=== PATIENT | male | born 1990 | race Two or more races ===

== ENCOUNTER 2020-10-14 21:18 | Emergency (ER) | payer MEDICAID ==
[~2020-10-14] VITALS: Ht 180.3 cm; Wt 72.7 kg
[2020-10-14] MEDS ORDERED: ONDANSETRON HCL 4 MG/2 ML VIAL IVP ONE (21:45)
[2020-10-14] MEDS ORDERED: NALOXONE HCL 1 MG/ML 2 ML SYG IVP ONE (21:45)
[2020-10-14 22:17] LABS: BASOPHILS % (AUTO) 0.6 % (0.0-2.0); EOSINOPHILS % (AUTO) 1.7 % (1.0-6.0); HEMATOCRIT 43.2 % (41-53); HEMOGLOBIN 14.2 g/dL (13.5-17.5); LYMPHOCYTES # (AUTO) 3.1 K/uL (1.0-4.8); LYMPHOCYTES % (AUTO) 30.8 % (22.0-44.0); MEAN CORPUSCULAR HGB CONC 32.8 G/dL (31.0-37.0); MEAN CORPUSCULAR VOLUME 89 fL (80-100); MONOCYTES # (AUTO) 0.9 K/uL (0.1-1.0); MONOCYTES % (AUTO) 8.9 % (2.0-9.0); NEUTROPHILS # (AUTO) 5.9 K/uL (1.8-7.7); PLATELET COUNT (AUTO) 305 K/uL (150-450); RED BLOOD CELL COUNT(AUTO) 4.89 MIL/uL (4.50-5.90); RED CELL DISTRIBUTION WIDTH 13.7 % (11.5-14.5)
[2020-10-14 22:22] LABS: ANION GAP 13 mmol/L (8-16); CALCIUM, TOTAL 8.3 mg/dL (8.8-10.5); CARBON DIOXIDE 26 mmol/L (22-29); CHLORIDE 103 mmol/L (98-107); CREATININE 1.38 mg/dL (0.60-1.30); GLOMERULAR FILTR. RATE CALC 45 mL/min (>60); GLUCOSE,RANDOM 179 mg/dL (70-110); POTASSIUM 3.3 mmol/L (3.5-5.1); SODIUM SERUM 142 mmol/L (136-145); UREA NITROGEN, BLOOD 17 mg/dL (7-18)
[2020-10-14 22:29] LABS: ACETAMINOPHEN < 2 mcg/mL (10-30); ALANINE AMINOTRANSFERASE 67 U/L (12-78); ALBUMIN 3.4 g/dL (3.4-5.0); ALKALINE PHOSPHATASE 132 U/L (46-116); ASPARTATE AMINOTRANSFERASE 43 U/L (15-37); BILIRUBIN,TOTAL 0.2 mg/dL (0.1-1.0); SALICYLATE 1.1 mg/dL (2.8-20.0); TOTAL PROTEIN, SERUM 7.3 g/dL (6.4-8.2)
[2020-10-15] MEDS ORDERED: CEPHALEXIN MONOHYDRATE 500 MG CAPSULE PO ONE (02:30)
[2020-10-15] MEDS ORDERED: LIDOCAINE 1% 10 ML VIAL SQ ONE (02:30)
[2020-10-15] MEDS ORDERED: DOXYCYCLINE HYCLATE 100 MG TABLET PO ONE (02:30)
[2020-10-15] MEDS ORDERED: BUPRENORPHINE HCL/NALOXONE HCL 8-2 MG SUBLINGUAL TABLET SL ONE (03:15)
[2020-10-15 04:57] VITALS: BP 131/75
== END 2020-10-15 05:18 | disposition home or self-care (01) ==
LOC: EMS 21:18 → EDBD 21:18 → EMS 10-15 05:18
DX: L02.413 Cutaneous abscess of right upper limb (principal); L03.113 Cellulitis of right upper limb; R41.82 Altered mental status, unspecified; F15.10 Other stimulant abuse, uncomplicated; F11.20 Opioid dependence, uncomplicated
CPT/HCPCS: 10060; 80053; 82962; 85025; 93005; 96374; 96375; 99291; G0480; J2405; J3490; G0481